=== PATIENT | female | born 1970 | race Caucasian/White ===

== ENCOUNTER 2020-02-16 05:26 | Inpatient (IN) ==
--- NOTE | 2019-11-05 09:26 | Anesthesiology Consultation ---
Date of Service November 05, 2019 Assessment & Plan Chart Review Chart Review: Pending: Refer to Additional Notes / Consult section and Patient NOT seen in Pre Admission Testing Consults Requested Would like to see an old EKG and a Primary office wellness visit note to better understand her multiple medical problems and IF we need medical clearance. History Surgery Operation Date: 11/18/19 13:05 Proposed Procedures p L5-S1 Decompression and Fusion, Spinal Cord Monitoring - Aashish Belcher, Height/Weight Height: 5 ft 5 in Weight: 80.739 kg Allergies Allergy/AdvReac Type Severity Reaction Status Date / Time bupropion [From Wellbutrin] Allergy Severe Seizure Verified 11/03/19 08:23 Iodinated Contrast Media Allergy Severe Anaphylaxis Verified 11/03/19 09:11 tramadol Allergy Severe SEIZURE Verified 11/03/19 08:23 milk AdvReac Mild upset Verified 11/03/19 08:31 stomach Medications Home Medications Medication Instructions Recorded Confirmed Last Taken albuterol sulfate 90 mcg/actuation 2 puffs INH QID PRN gm 08/24/19 11/03/19 Unknown aerosol inhaler celecoxib 200 mg capsule 200 mg PO QAM 08/24/19 11/03/19 Unknown cyclobenzaprine 10 mg tablet 10 mg PO BID tab 08/24/19 11/03/19 Unknown famotidine 20 mg tablet 20 mg PO BID 08/24/19 11/03/19 Unknown lamotrigine 200 mg tablet 200 mg PO BID 08/24/19 11/03/19 Unknown omeprazole 40 mg capsule,delayed 40 mg PO BID cap 08/24/19 11/03/19 Unknown release ondansetron HCl 4 mg tablet 4 mg PO Q8H PRN tab 08/24/19 11/03/19 Unknown pregabalin 50 mg capsule 50 mg PO BID cap 08/24/19 11/03/19 Unknown sumatriptan succinate 100 mg tablet 100 mg PO .COMPLEX PRN 30 Days #9 08/24/19 11/03/19 Unknown tab galcanezumab-gnlm 120 mg/mL 120 mg SQ MONTHLY 30 Days #1 ml 08/25/19 11/03/19 Unknown subcutaneous pen injector cariprazine 3 mg capsule 1.5 mg PO QAM 10/26/19 11/03/19 Unknown fluticasone furoate-vilanterol 1 inh INHALATION QAM 11/03/19 11/03/19 Unknown [Breo Ellipta] tiotropium bromide [Spiriva with 1 cap INHALATION QAM 11/03/19 11/03/19 Unknown HandiHaler] Past Medical History Medical History Anxiety and depression Bipolar disease, chronic Borderline personality disorder FOLLOWS THERAPY WEEKLY COPD (chronic obstructive pulmonary disease) Emphysema lung Fibromyalgia GERD (gastroesophageal reflux disease) History of IBS History of traumatic brain injury FEBRUARY 2000 (NO SURGICAL INTERVENTION) Lumbar degenerative disc disease Macular degeneration "BEGINING STAGES" Migraine without aura, not intractable, without status migrainosus Neuropathy Osteoarthritis involving multiple joints on both sides of body Pituitary abnormality HYPERPITUITARISM Post traumatic stress disorder Renal adenoma Restless leg syndrome Schizophrenia Seizure disorder EPILEPSY (LAST EVENT JULY 2019) Sleep apnea NO DEVICE "DID NOT WORK FOR ME" Transient ischemic attack (TIA) ? TIA'S (BRAIN MRI SHOWS LEFT SIDE OF BRAIN SMALLER THAN RIGHT) BEING MONITORED [facility] Past Family History Family History Mother Cerebral aneurysm Breast cancer Father QI (obstructive sleep apnea) Heart failure COPD (chronic obstructive pulmonary disease) Asthma Family history of diabetes mellitus Past Surgical History Surgical History H/O tubal ligation History of colonoscopy History of endometrial ablation History of esophagogastroduodenoscopy (EGD) History of hysterectomy History of removal of ovarian cyst [place] teeth removed Social History Smoking Status: Current every day smoker tobacco type: cigarettes Do You Dip or Chew Tobacco: No Smoking End Date: 10 CIG DAILY Hx Alcohol Use: No Hx Substance Use: No substance use type: does not use
--- NOTE | 2020-02-09 15:44 | Anesthesiology Consultation ---
Date of Service February 09, 2020 Assessment & Plan (1) Encounter for pre-operative examination: Chart Review Chart Review: Acceptable Risk for Surgery (evaluation by anesthesia/EKG/CBC DOS and Covid testing ) and Patient NOT seen in Pre Admission Testing Preop EKG showing sinus tachycardia with possible anterior infarct present since at least December 08, 2019. Had normal stress test one year ago. Will repeat EKG DOS. Pt's functional status can be evaluated DOS by anesthesiologist and decision to proceed with surgery will be at anesthesiologist discretion. CBC also showed leukocytosis - will repeat AM of surgery Per nursing assessment 02/09/2020, pt has had no recent travel. No known contact with PUIs or Covid positive people. No current Covid related symptoms or history of Covid testing. Will need testing prior to surgery. Seen by neuro 01/19/2020 = high-frequency migraine, probably chronic migraine, and seizure disorder, possibly psychogenic nonepileptic seizures (previous EEGs have been normal active ). Patient will restart Topamax. Topamax will be useful for patient's migraines as well as seizure disorder. May also have mood stabilizing effect in light of her history of bipolar disorder. Patient deemed acceptable risk for surgery by Dr. Chadwick on 11/05/2019 but surgery was rescheduled. History Surgery Operation Date: 11/16/19 13:05 Proposed Procedures p L5-S1 Decompression and Fusion, Spinal Cord Monitoring - Aashish Belcher DO Operation Date: 02/16/20 11:35 Proposed Procedures p L5-S1 Decompression Fusion, Spinal Cord Monitoring - Aashish Belcher DO Height/Weight Height: 5 ft 5 in Weight: 80.739 kg Allergies Allergy/AdvReac Type Severity Reaction Status Date / Time bupropion [From Wellbutrin] Allergy Severe Seizure Verified 02/09/20 09:55 Iodinated Contrast Media Allergy Severe Anaphylaxis Verified 02/09/20 09:55 tramadol Allergy Severe SEIZURE Verified 02/09/20 09:55 milk AdvReac Mild upset Verified 02/09/20 09:55 stomach Medications Home Medications Medication Instructions Recorded Confirmed Last Taken albuterol sulfate 90 mcg/actuation 2 puffs INH QID PRN gm 08/24/19 02/09/20 Unknown aerosol inhaler celecoxib 200 mg capsule 200 mg PO QAM 08/24/19 02/09/20 Unknown cyclobenzaprine 10 mg tablet 10 mg PO BID tab 08/24/19 02/09/20 Unknown famotidine 20 mg tablet 20 mg PO BID 08/24/19 02/09/20 Unknown omeprazole 40 mg capsule,delayed 40 mg PO BID cap 08/24/19 02/09/20 Unknown release ondansetron HCl 4 mg tablet 4 mg PO Q8H PRN tab 08/24/19 02/09/20 Unknown pregabalin 50 mg capsule 50 mg PO BID cap 08/24/19 02/09/20 Unknown sumatriptan succinate 100 mg tablet 100 mg PO .COMPLEX PRN 30 Days #9 08/24/19 02/09/20 Unknown tab fluticasone furoate-vilanterol 1 inh INHALATION QAM 11/03/19 02/09/20 Unknown [Breo Ellipta] tiotropium bromide [Spiriva with 1 cap INHALATION QAM 11/03/19 02/09/20 Unknown HandiHaler] galcanezumab-gnlm 120 mg/mL 120 mg SQ MONTHLY #1 ml 11/25/19 02/09/20 Unknown subcutaneous pen injector cyproheptadine 4 mg tablet 4 mg PO BID #60 tab 01/27/20 02/09/20 Unknown Past Medical History Medical History Anxiety and depression Bipolar disease, chronic Borderline personality disorder FOLLOWS THERAPY WEEKLY COPD (chronic obstructive pulmonary disease) Fibromyalgia GERD (gastroesophageal reflux disease) History of IBS History of traumatic brain injury FEBRUARY 2000 (NO SURGICAL INTERVENTION) Lumbar degenerative disc disease Macular degeneration "BEGINING STAGES" Migraine without aura, not intractable, without status migrainosus Neuropathy Osteoarthritis involving multiple joints on both sides of body Pituitary abnormality HYPERPITUITARISM Post traumatic stress disorder Renal adenoma Restless leg syndrome Schizophrenia Seizure disorder EPILEPSY (LAST EVENT JULY 2019) Sleep apnea NO DEVICE "DID NOT WORK FOR ME" Transient ischemic attack (TIA) ? TIA'S (BRAIN MRI SHOWS LEFT SIDE OF BRAIN SMALLER THAN RIGHT) BEING MONITORED [facility] Past Family History Family History Mother Cerebral aneurysm Breast cancer Father QI (obstructive sleep apnea) Heart failure COPD (chronic obstructive pulmonary disease) Asthma Family history of diabetes mellitus Past Surgical History Surgical History H/O tubal ligation History of colonoscopy History of endometrial ablation History of esophagogastroduodenoscopy (EGD) History of hysterectomy History of removal of ovarian cyst [place] teeth removed Social History Smoking Status: Current every day smoker tobacco type: cigarettes Do You Dip or Chew Tobacco: No Smoking End Date: 10 CIG DAILY Hx Alcohol Use: No Hx Substance Use: No substance use type: does not use Testing Laboratory Results 01/07/20= WBC: 14.70 H/H: 13.1/39.3 PLATELETS: 242 SODIUM: 138 POTASSIUM: 3.5 CHLORIDE: 104 CO2: 22 BUN: 12 CREATININE: 0.6 GLUCOSE: 96 Electrocardiogram Date: 01/07/20 Findings: + ST @ (111) Possible anterior infarct (cited on or before December 08, 2019). Chest X-Ray Date: 12/22/19 Findings: + NAD Echocardiogram Date: 05/28/18 EF: 73% RWMA: + none Mild AR. Mild TR. Stress Test Date: 01/11/19 Type: DSE Resting EF: 73% Resting RWMA: + none Negative dobutamine stress echo and EKG for ischemia at 89% MPHR. Stress EKG response shows no evidence of ischemia. Mild TR.
[~2020-02-16 05:26] MED LIST: ACETAMINOPHEN 500 MG TAB PO SCH; CEFAZOLIN 2000MG 2,000 MG/15 ML SYR IV SCH; CeleBREX 200 MG CAP PO SCH; GABAPENTIN 900 MG DOSE PO SCH; LR 15ML/HR IV SCH
[2020-02-16] MEDS ORDERED: GABAPENTIN 900 MG DOSE PO SCH (06:00)
[2020-02-16] MEDS ORDERED: ACETAMINOPHEN 500 MG TAB PO SCH (06:00)
[2020-02-16] MEDS ORDERED: CEFAZOLIN 2000MG 2,000 MG/15 ML SYR IV SCH (06:00)
[2020-02-16] MEDS ORDERED: LR 15ML/HR IV SCH (06:00)
[2020-02-16] MEDS ORDERED: CeleBREX 200 MG CAP PO SCH (06:00)
[2020-02-16 06:14] LABS: Basophils # (auto) 0.03 K/uL (0-0.2); Basophils % (auto) 0.3 %; Eosinophils # (auto) 0.44 K/uL (0-0.5); Eosinophils % (auto) 4.9 %; Hemoglobin 13.2 g/dL (12.0-16.0); Immature Granulocytes # (auto) 0.03 K/uL (0.00-0.02); Immature Granulocytes % (auto) 0.3 %; Lymphocytes # (auto) 3.78 K/uL (1.2-3.4); Lymphocytes % (auto) 41.9 %; Mean Corpuscular Hemoglobin 28.5 pg (25-34); Mean Corpuscular Volume 88.6 fL (80-100); Mean Platelet Volume 10.4 fL (7.4-10.4); Monocytes # (auto) 0.55 K/uL (0.11-0.59); Monocytes % (auto) 6.1 %; Neutrophils # (auto) 4.19 K/uL (1.4-6.5); Neutrophils % (auto) 46.5 %; Platelet Count 242 K/uL (130-400); RDW Coefficient of Variation 14.2 % (11.5-14.5); RDW Standard Deviation 45.7 fL (36.4-46.3); Red Blood Count 4.63 M/uL (4.2-5.4); White Blood Count 9.02 K/uL (4.8-10.8)
[2020-02-16 06:17] LABS: Mean Corpuscular Hgb Conc 32.2 g/dL (32-36)
[2020-02-16] MEDS ORDERED: BUPIVACAINE/EPINEPHRINE 0.25% 1:200,000 30 ML VIAL ONE (06:55)
[2020-02-16] MEDS ORDERED: BACITRACIN INJ 50,000 UNIT VIAL ONE (06:55)
[2020-02-16] MEDS ORDERED: MIDAZOLAM HCL 1 MG/ML 2ML VIAL ONE (06:56)
[2020-02-16] MEDS ORDERED: fentaNYL citrate 100 MCG/2 ML VIAL ONE (06:56)
[2020-02-16] MEDS ORDERED: ATROPINE SULFATE 0.1 MG/ML 10ML SYR IV PRN (07:03)
[2020-02-16] MEDS ORDERED: ePHEDrine sulfate 50 MG/ML AMP IV PRN (07:03)
[2020-02-16] MEDS ORDERED: ONDANSETRON INJ 2 MG/ML 2 ML VIAL IV PRN ×2 (07:03→10:28)
--- NOTE | 2020-02-16 07:30 | History & Physical Bridge Note ---
Date of Service February 16, 2020 History & Physical Bridge Note I have examined the patient, reviewed the History & Physical and in the interval since the performance of the History & Physical I have noted the following changes of clinical significance: no changes noted
--- NOTE | 2020-02-16 07:31 | History & Physical Report ---
Date of Service February 16, 2020 Assessment & Plan (1) Neurogenic claudication due to lumbar spinal stenosis: L5-S1 decompression fusion Present on Admission?: Yes History of Present Illness Chief Complaint: Back and bilateral leg pain Primary Care Provider: Richi Berkowitz, DO This is a 49-year-old female presents with back and leg pain after failing extensive course of nonoperative care is here for surgical intervention. Allergies Allergy/AdvReac Type Severity Reaction Status Date / Time bupropion [From Wellbutrin] Allergy Severe Seizure Verified 02/16/20 06:11 Iodinated Contrast Media Allergy Severe Anaphylaxis Verified 02/16/20 06:11 tramadol Allergy Severe SEIZURE Verified 02/16/20 06:11 milk AdvReac Mild upset Verified 02/16/20 06:11 stomach Home Medications Home Medications Medication Instructions Recorded Confirmed Type albuterol sulfate 90 mcg/actuation 2 puffs INH QID PRN gm 08/24/19 02/16/20 History aerosol inhaler celecoxib 200 mg capsule 200 mg PO QAM 08/24/19 02/16/20 History cyclobenzaprine 10 mg tablet 10 mg PO BID tab 08/24/19 02/16/20 History famotidine 20 mg tablet 20 mg PO BID 08/24/19 02/16/20 History omeprazole 40 mg capsule,delayed 40 mg PO BID cap 08/24/19 02/16/20 History release ondansetron HCl 4 mg tablet 4 mg PO Q8H PRN tab 08/24/19 02/16/20 History pregabalin 50 mg capsule 50 mg PO BID cap 08/24/19 02/16/20 History sumatriptan succinate 100 mg tablet 100 mg PO .COMPLEX PRN 30 Days #9 08/24/19 02/16/20 Rx tab fluticasone furoate-vilanterol 1 inh INHALATION QAM 11/03/19 02/16/20 History [Breo Ellipta] tiotropium bromide [Spiriva with 1 cap INHALATION QAM 11/03/19 02/16/20 History HandiHaler] galcanezumab-gnlm 120 mg/mL 120 mg SQ MONTHLY #1 ml 11/25/19 02/16/20 Rx subcutaneous pen injector cyproheptadine 4 mg tablet 4 mg PO BID #60 tab 01/27/20 02/16/20 Rx Past Med/Surg History Medical History Anxiety and depression Bipolar disease, chronic Borderline personality disorder FOLLOWS THERAPY WEEKLY COPD (chronic obstructive pulmonary disease) Fibromyalgia GERD (gastroesophageal reflux disease) History of IBS History of traumatic brain injury FEBRUARY 2000 (NO SURGICAL INTERVENTION) Lumbar degenerative disc disease Macular degeneration "BEGINING STAGES" Migraine without aura, not intractable, without status migrainosus Neuropathy Osteoarthritis involving multiple joints on both sides of body Pituitary abnormality HYPERPITUITARISM Post traumatic stress disorder Renal adenoma Restless leg syndrome Schizophrenia Seizure disorder EPILEPSY (LAST EVENT JULY 2019) Sleep apnea NO DEVICE "DID NOT WORK FOR ME" Transient ischemic attack (TIA) ? TIA'S (BRAIN MRI SHOWS LEFT SIDE OF BRAIN SMALLER THAN RIGHT) BEING MONITORED [facility] Surgical History H/O tubal ligation History of colonoscopy History of endometrial ablation History of esophagogastroduodenoscopy (EGD) History of hysterectomy History of removal of ovarian cyst [place] teeth removed Family History Mother Cerebral aneurysm Breast cancer Father QI (obstructive sleep apnea) Heart failure COPD (chronic obstructive pulmonary disease) Asthma Family history of diabetes mellitus Social History Preferred Language: Swedish Communication Ability: Effective [employer] Required: No Beliefs That Will Affect Care: None Current Living Situation: Spouse Other Information That Helps Us Care for You: No Feels Safe at Home: Yes Safety Concerns: Feels Safe At This Time Smoking Status: Current every day smoker Tobacco Type: cigarettes ; Do You Dip or Chew Tobacco: No ; Smoking End Date: 10 CIG DAILY ; Second Hand Exposure: No ; Tobacco Cessation Education Requested by Patient: No Hx Alcohol Use: No Hx Substance Use: No Physical Exam Physical Exam: Patient is alert and oriented neurologically intact Heart regular rate and rhythm Lungs clear to auscultation Results & Data Vital Signs (Past 12 Hours) Vital Signs Temp Pulse Resp BP Pulse Ox 02/16/20 06:17 37 C 71 18 121/78 93
[2020-02-16] MEDS ORDERED: HYDROmorphone INJ 2 MG/ML SYR/VIAL ONE (08:19)
[2020-02-16] MEDS ORDERED: ePHEDrine sulfate 50 MG/ML SYR ONE (08:21)
[2020-02-16] MEDS ORDERED: ROCURONIUM BROMIDE 10 MG/ML 5 ML VIAL ONE (08:21)
[2020-02-16] MEDS ORDERED: LARYING-O-JET KIT (LTA) ONE (08:21)
[2020-02-16] MEDS ORDERED: PHENYLEPHRINE 100MCG/ML 5ML SYR ONE (08:21)
[2020-02-16] MEDS ORDERED: LIDOCAINE HCL 2% 2 ML VIAL/AMP(20MG/ML) INFIL ONE (08:21)
[2020-02-16] MEDS ORDERED: ONDANSETRON INJ 2 MG/ML 2 ML VIAL ONE (08:21)
[2020-02-16] MEDS ORDERED: DEXAMETHASONE SOD INJ 4 MG/ML VIAL ONE (08:21)
[2020-02-16] MEDS ORDERED: PROPOFOL IV EMULSION 10 MG/ML 20 ML VIAL IV ONE (08:21)
[2020-02-16] MEDS ORDERED: GLYCOPYRROLATE 0.2 MG/ML VIAL ONE (08:21)
[2020-02-16] MEDS ORDERED: NEOSTIGMINE METHYLSULFATE 5 MG/5 ML SYR ONE (08:21)
[2020-02-16] MEDS ORDERED: FLOSEAL HEMOSTATIC MATRIX 10ML TOP ONE (08:30)
--- NOTE | 2020-02-16 09:09 | Operative Report ---
Post Operative Report Pre & Post Diagnosis Operation Date: 11/16/19 13:05 <No data on this case meets the specified criteria> Operation Date: 02/16/20 07:45 Pre-Op Diagnosis: Lumbar spinal stenosis with neurogenic claudication Postoperative diagnosis Lumbar spinal stenosis with neurogenic claudication I identified the patient and participated in the time-out.: Yes Procedure Operation Date: 11/16/19 13:05 <No data on this case meets the specified criteria> Operation Date: 02/16/20 07:45 Actual Procedures p L5-S1 Decompression Fusion, Interbody Cage Insertion L5-S1, Spinal Cord Monitoring(Not Applicable) - Aashish Belcher DO Surgeon Aashish Belcher DO Hotel General Manager Myla Gonzales Estimated Blood Loss 30 Findings Consistent with Post-Op Diagnosis Specimens None Indications This is a 49-year-old female presents with above-mentioned diagnosis after failing extensive course of nonoperative care is here for surgical invention. Description of Procedure Patient was met with identified informed consent obtained. Patient was then taken to the operative suite underwent intubation placed in a prone position on the Scout table on top of the Benjamin frame. All bony prominences well-padded eyes inspected to ensure no external pressure placed upon the. This point the lumbar spine was prepped and draped in normal sterile fashion. Sharp dissection with the assistance of Bovie cautery was performed down to and exposing the lamina and transverse processes of L5 and the sacral ala bilaterally. From a caudal cephalad fashion complete laminectomy of L5 was performed including bilateral medial facetectomies and foraminotomies addressing all neural compression. Pedicle screws were then placed in L5 and S1 levels bilaterally with assistance of fluoroscopy and the appropriately sized razia placed. By way of a transforaminal approach on the left complete discectomy was performed endplates curetted to subcortical bleeding bone and a 9 x 22 mm peek cage filled with osteo-amp bone graft tapped in position. The rods were then compressed locked into final position bilaterally. The transverse processes of L5 and sacral ala burred to subcortical bleeding bone. Infuse collagen sponge master graft local autograft placed in the posterior lateral gutters. 15 round JAMEY drain inserted. The incision was then closed with 1 Vicryl in the fascia 2-0 Vicryl subcutaneously and 4 Monocryl for final skin closure. Steri-Strip sterile dressings placed. Patient waken taken to PACU stable condition. Please note spinal cord monitoring was utilized that the procedure no changes noted. Lastly Myla Gonzales was present at the entire procedure involved the patient positioning complex portions of the surgery and final skin closure. I attest to the content of the Intraoperative Record and any orders documented therein. Any exceptions are noted below.
[2020-02-16] MEDS: fentaNYL citrate 100 MCG/2 ML VIAL IV PRN ×3 (09:32→09:54)
--- NOTE | 2020-02-16 09:49 | Fluoroscopy Report ---
FL lumbar spine 2-3V HISTORY: 49 years-old Female L5-S1 DECOMPRESSION AND FUSION COMPARISON: None TECHNIQUE: 2 spot fluoroscopic images of the lumbar spine were obtained utilizing 17.7 seconds fluoro scopy time FINDINGS: Laminectomy with posterior interbody razia and screw fusion and discectomy changes are noted at what is labeled the L5-S1 level. There is apparent transitional lumbosacral anatomy with lumbarization of S1 . Satisfactory alignment. No acute fracture. The hardware appears intact. IMPRESSION: Fluoroscopic assistance as above. Please see operative report for further details. ACT 112: Negative or not required by law. The above report was generated using voice recognition software. It may contain grammatical, syntax o r spelling errors. Electronically signed by: Jose Alejandro De Jesus M.D. 02/16/2020 9:48 AM
--- NOTE | 2020-02-16 10:16 | Anesthesiology Progress Note ---
Date of Service February 16, 2020 Anesthesia Post Procedure Vital Signs Vital Signs: Temp Pulse Pulse Resp BP Pulse Ox 02/16/20 10:00 97.5 F L 73 14 105/64 96 02/16/20 09:50 87 16 113/65 95 02/16/20 09:40 87 16 136/92 98 02/16/20 09:30 85 14 120/66 96 02/16/20 09:22 97.3 F L 75 14 126/78 96 02/16/20 06:17 98.6 F 71 18 121/78 93 Pain Intensity Lower Back: Pain Intensity: 5 Transfer of Care Handoff Completed per policy Notes Mental Status: alert / awake / arousable and participated in evaluation Patient Amnestic to Procedure: Yes Nausea / Vomiting: adequately controlled Pain: adequately controlled Airway Patency, RR, SpO2: stable & adequate BP & HR: stable & adequate Hydration State: stable & adequate Anesthetic Complications: no major complications apparent and Pt Satisfied with anesthetic care
[2020-02-16] MEDS ORDERED: LORazepam 0.5 MG TAB PO PRN (10:28)
[2020-02-16] MEDS ORDERED: HYDROmorphone INJ 1 MG/ML SYRINGE IV PRN (10:28)
[2020-02-16] MEDS ORDERED: SOD PHOSPHATE/SOD BIPHOSPHATE ENEMA 132 ML BTL PR PRN (10:28)
[2020-02-16] MEDS ORDERED: SUMAtriptan succinate 100 MG TAB PO PRN (10:28)
[2020-02-16] MEDS ORDERED: LORazepam 0.5 MG/1 ML VIAL IV PRN (10:28)
[2020-02-16] MEDS ORDERED: bisacodyL 10 MG SUPP PR PRN (10:28)
[2020-02-16] MEDS ORDERED: MAGNESIUM HYDROXIDE SUSP 30 ML UDC PO PRN (10:28)
[2020-02-16] MEDS ORDERED: METOCLOPRAMIDE HCL INJ 5 MG/ML 2 ML VIAL IV PRN (10:28)
[2020-02-16] MEDS ORDERED: DO NOT ADMINISTER PNEUMOCOCCAL VACCINE PRN (10:28)
[2020-02-16] MEDS ORDERED: NALOXONE HCL 0.4 MG/1 ML VIAL/CARP IV PRN (10:28)
[2020-02-16] MEDS ORDERED: PROMETHAZINE HCL 12.5 MG in SODIUM CHLORIDE 0.9% 50 ML IV PRN (10:28)
[2020-02-16] MEDS ORDERED: ACETAMINOPHEN 500 MG TAB PO PRN (10:28)
[2020-02-16] MEDS ORDERED: ACETAMINOPHEN 1,000 MG/100 ML VIAL IV PRN (10:28)
[2020-02-16] MEDS ORDERED: ALUMINUM/MAGNESIUM SUSP 30 ML UDC PO PRN (10:28)
[2020-02-16] MEDS ORDERED: ALBUTEROL HFA 8 GM INHALER INH PRN (10:28)
[2020-02-16] MEDS ORDERED: DO NOT ADMINISTER FLU VACCINE PRN (10:28)
[2020-02-16] MEDS ORDERED: FAMOTIDINE 20 MG TAB PO PRN (10:28)
[2020-02-16] MEDS ORDERED: ONDANSETRON 4 MG OD TAB PO PRN (10:28)
[2020-02-16] MEDS ORDERED: HYDROmorphone INJ 0.5 MG/0.5 ML SYR IV PRN (10:28)
[2020-02-16] MEDS: LACTATED RINGER'S 1,000 ML IV SCH ×2 (11:22→20:13)
[2020-02-16] MEDS: KETOROLAC TROMETHAMINE 15 MG/ML VIAL IV SCH ×3 (11:45→23:43)
[2020-02-16] MEDS: OXYCODONE HCL IR 5 MG TAB (IMMEDIATE RELEASE) PO PRN ×3 (12:52→23:50)
[2020-02-16] MEDS: CEFAZOLIN 2000MG 2,000 MG/15 ML SYR IV SCH ×2 (15:56→23:43)
[2020-02-16] MEDS: ESCITALOPRAM OXALATE 10 MG TAB PO SCH (16:19)
[2020-02-16] MEDS: DOCUSATE SODIUM/SENNA 50/8.6MG TAB PO SCH (20:16)
[2020-02-16] MEDS: FAMOTIDINE 20 MG TAB PO SCH (20:16)
[2020-02-16] MEDS: ziprasidone HCL 80 MG CAP PO SCH (20:16)
[2020-02-16] MEDS: PANTOprazole 40 MG TAB PO SCH (20:16)
[2020-02-16] MEDS: CYPROHEPTADINE HCL 4 MG TAB PO SCH (20:17)
[2020-02-16] MEDS: PREGABALIN 50 MG CAP PO SCH (20:20)
[2020-02-17] MEDS: POLYETHYLENE (MIRALAX) 17 GM PACK PO SCH ×4 (05:24→23:41)
[2020-02-17] MEDS: KETOROLAC TROMETHAMINE 15 MG/ML VIAL IV SCH (05:25)
--- NOTE | 2020-02-17 05:45 | Electrocardiogram Report ---
Test Reason : Blood Pressure : / mmHG Vent. Rate : 071 BPM Atrial Rate : 071 BPM P-R Int : 164 ms QRS Dur : 088 ms QT Int : 424 ms P-R-T Axes : 037 050 024 degrees QTc Int : 460 ms Normal sinus rhythm Normal ECG No previous ECGs available Confirmed by Richar Stanton ([id number]) on 02/17/2020 5:45:27 AM Referred By: Aashish Belcher Confirmed By:Richar Stanton
[2020-02-17 06:05] LABS: Basophils # (auto) 0.01 K/uL (0-0.2); Basophils % (auto) 0.1 %; Hematocrit (blood only) 36.5 % (37-47); Hemoglobin 11.9 g/dL (12.0-16.0); Immature Granulocytes # (auto) 0.06 K/uL (0.00-0.02); Immature Granulocytes % (auto) 0.3 %; Lymphocytes # (auto) 1.62 K/uL (1.2-3.4); Lymphocytes % (auto) 9.1 %; Mean Corpuscular Hemoglobin 29.1 pg (25-34); Mean Corpuscular Hgb Conc 32.6 g/dL (32-36); Mean Corpuscular Volume 89.2 fL (80-100); Mean Platelet Volume 10.4 fL (7.4-10.4); Monocytes % (auto) 5.6 %; Neutrophils # (auto) 15.18 K/uL (1.4-6.5); Neutrophils % (auto) 84.9 %; Platelet Count 222 K/uL (130-400); RDW Coefficient of Variation 14.2 % (11.5-14.5); RDW Standard Deviation 46.5 fL (36.4-46.3); Red Blood Count 4.09 M/uL (4.2-5.4); White Blood Count 17.87 K/uL (4.8-10.8)
[2020-02-17 06:32] LABS: BUN Creatinine Ratio 10.1 (10-20); Calcium 8.3 mg/dl (8.5-10.1); Creatinine Clr Calc Pharmacy 107.6 ml/min; Est GFR (African American) 120.1; Est GFR (Non-African American) 103.7; Potassium 4.2 mmol/L (3.5-5.1)
[2020-02-17] MEDS: PANTOprazole 40 MG TAB PO SCH ×2 (08:15→20:47)
[2020-02-17] MEDS: UMECLIDINIUM BROMIDE 62.5MCG/BLISTER 7 PUFFS/INHALER INH SCH (08:15)
[2020-02-17] MEDS: CYPROHEPTADINE HCL 4 MG TAB PO SCH ×2 (08:15→20:47)
[2020-02-17] MEDS: FLUTICASONE/VILANTEROL 100/25MCG 14 PUFFS/INHALER INH SCH (08:15)
[2020-02-17] MEDS: PREGABALIN 50 MG CAP PO SCH ×2 (08:15→20:46)
[2020-02-17] MEDS: FAMOTIDINE 20 MG TAB PO SCH ×2 (08:16→20:46)
--- NOTE | 2020-02-17 08:20 | Anesthesiology Progress Note ---
Date of Service February 17, 2020 Anesthesia Post Procedure Vital Signs Vital Signs: Temp Pulse Pulse Resp BP BP Pulse Ox 02/17/20 07:15 36.8 C 62 16 113/77 93 02/16/20 23:35 36.7 C 78 14 120/81 92 02/16/20 15:33 36.6 C 83 17 120/81 93 02/16/20 13:20 36.6 C 84 16 134/86 92 02/16/20 12:20 36.6 C 88 16 110/77 94 02/16/20 11:20 36.5 C 90 18 111/72 97 02/16/20 10:56 63 16 95/61 L 97 02/16/20 10:20 36.6 C 73 16 114/75 99 02/16/20 10:00 36.4 C L 73 14 105/64 96 02/16/20 09:50 87 16 113/65 95 02/16/20 09:40 87 16 136/92 98 02/16/20 09:30 85 14 120/66 96 02/16/20 09:22 36.3 C L 75 14 126/78 96 Pain Intensity Lower Back: Pain Intensity: 5 Notes Mental Status: alert / awake / arousable and participated in evaluation Nausea / Vomiting: adequately controlled Pain: adequately controlled Airway Patency, RR, SpO2: stable & adequate BP & HR: stable & adequate Hydration State: stable & adequate Anesthetic Complications: Pt Satisfied with anesthetic care
[2020-02-17] MEDS: ESCITALOPRAM OXALATE 10 MG TAB PO SCH (08:56)
--- NOTE | 2020-02-17 09:42 | Orthopedic Progress Note ---
Date of Service February 17, 2020 Assessment & Plan (1) Neurogenic claudication due to lumbar spinal stenosis: This time we will continue physical therapy monitor her JAMEY output anticipate discharge home tomorrow. Present on Admission?: Yes Admission and Anticipated Discharge Date Admission Date: February 16, 2020 Subjective Back pain controlled leg symptoms improved. Physical Exam Physical Exam: Patient is sitting at the bedside. She has good strength testing. Appears comfortable. Results & Data ([facility]) Vital Signs (Past 12 Hours) Vital Signs Temp Pulse Resp BP Pulse Ox 02/17/20 07:15 36.8 C 62 16 113/77 93 02/16/20 23:35 36.7 C 78 14 120/81 92
[2020-02-17] MEDS: OXYCODONE HCL IR 5 MG TAB (IMMEDIATE RELEASE) PO PRN ×3 (10:57→21:57)
[2020-02-17] MEDS: ziprasidone HCL 80 MG CAP PO SCH (20:46)
[2020-02-17] MEDS: DOCUSATE SODIUM/SENNA 50/8.6MG TAB PO SCH (20:48)
[2020-02-18] MEDS: POLYETHYLENE (MIRALAX) 17 GM PACK PO SCH (06:29)
[2020-02-18] MEDS: OXYCODONE HCL IR 5 MG TAB (IMMEDIATE RELEASE) PO PRN (06:29)
[2020-02-18] MEDS: UMECLIDINIUM BROMIDE 62.5MCG/BLISTER 7 PUFFS/INHALER INH SCH (08:57)
[2020-02-18] MEDS: FLUTICASONE/VILANTEROL 100/25MCG 14 PUFFS/INHALER INH SCH (08:57)
[2020-02-18] MEDS: ESCITALOPRAM OXALATE 10 MG TAB PO SCH (08:58)
[2020-02-18] MEDS: CYPROHEPTADINE HCL 4 MG TAB PO SCH (08:59)
[2020-02-18] MEDS: PANTOprazole 40 MG TAB PO SCH (09:00)
[2020-02-18] MEDS ORDERED: DEXAMETHASONE SOD PHOSPHATE 8 MG in SYRINGE 0 ML IV SCH (09:00)
[2020-02-18] MEDS: FAMOTIDINE 20 MG TAB PO SCH (09:00)
[2020-02-18] MEDS: PREGABALIN 50 MG CAP PO SCH (09:01)
--- NOTE | 2020-02-18 12:22 | Discharge Summary ---
Date of Service February 18, 2020 Admission HPI Per Admitting Provider This is a 49-year-old female presents with back and leg pain after failing extensive course of nonoperative care is here for surgical intervention. Principal Diagnosis Lumbar spinal stenosis with neurogenic claudication Discharge Data Allergies Allergy/AdvReac Type Severity Reaction Status Date / Time bupropion [From Wellbutrin] Allergy Severe Seizure Verified 02/16/20 06:11 Iodinated Contrast Media Allergy Severe Anaphylaxis Verified 02/16/20 06:11 tramadol Allergy Severe SEIZURE Verified 02/16/20 06:11 milk AdvReac Mild upset Verified 02/16/20 06:11 stomach Consultations 02/16/20 10:28 Consult Case Management - Discharge Planning Routine Procedures Performed Operation Date: 11/16/19 13:05 <No data on this case meets the specified criteria> Operation Date: 02/16/20 07:45 Actual Procedures p L5-S1 Decompression Fusion, Interbody Cage Insertion L5-S1, Spinal Cord Monitoring(Not Applicable) - Aashish Belcher DO Ordered Studies 02/16/20 07:45 FL fluoroscopy <1hr Routine FL lumbar spine 2-3V Routine Hospital Course (1) Neurogenic claudication due to lumbar spinal stenosis: Patient underwent lumbar decompression fusion tolerated this well was taken to the orthopedic for postoperative. Postop day 1 she was up and ambulating pain controlled. Postop day 2 JAMEY drain decreased appropriately. Pain well controlled. Strength intact. Subsequently discharged home. Discharge orders instructions from the chart for further review. Total Time Total Time Spent Total Time Spent (In Minutes): 20 minutes Discharge Plan Discharge Items Patient Disposition: Home - Self-Care Reason For Visit: LUMBAR SPINAL STENOSIS WO NEUROGENIC CLAUDICATION Discharge Diagnosis: Lumbar spinal stenosis with radiculopathy Activity: As commented below Non-emergency contact: Primary Care Provider Call non-emergency contact if: you have any medication questions Follow-up/Referrals: Richi Berkowitz DO [Primary Care Provider] - Diet: Regular Addtl Attending Provider Instructions: ACTIVITY RECOMMENDATIONS: SELF CARE INSTRUCTIONS AFTER THORACIC/LUMBAR FUSIONS 1. You may walk to your tolerance. It is good exercise for your legs and back. Expect some back and intermittent leg aches and pains. 2. You may perform "counter-top" level activities (make a sandwich, clarence with a project, etc.). 3. No bending or lifting of more than 10 pounds or back twisting of any nature (roll like a log when turning in bed). 4. You may ride in a car for 20-30 minutes at a time. No driving until after your first visit with your doctor. 5. Frequent changes of position and restricting sitting to 30 minutes at a time will help limit the amount of back spasms and stiffness you may experience. 6. You may discontinue the use of ambulatory aids (cane, crutches, etc.) once your strength and confidence allow. 7. You may keller machine operator the shower and let water strike your incision when you arrive home at least once daily. Do not take a tub bath, sit in a hot tub or go into a swimming pool until after your first recheck in the office. SPECIAL CARE INSTRUCTIONS: VERY IMPORTANT TO READ AND REVIEW A. Your surgical incision has been closed with a cosmetic suture under the skin that will dissolve in about 6 weeks. In 14 days, you can use a pair of clean scissors and cut the suture that is left outside of the skin at the ends of your incision. 1. The small skin tapes can be removed 7 days after surgery if they have not fallen off by that point. 2. You may keep the wound open to air as much as possible to promote healing after post-op day number 5 unless told otherwise by your doctor. 3. If you think the wound looks like it is becoming infected (redness or worsening drainage) and/or you are experiencing fever, chill or worsening back pain and muscle spasms, contact the office so that we may evaluate you as soon as possible. B. Complications are uncommon, but please contact us if you have any signs or symptoms of: 1. wound infection (fever higher than 102.5 degrees F, redness, separation of wound, drainage, or increasing pain from the incision) 2. blood clots in legs (pain, swelling, redness and warmth in legs) 3. urinary tract infection (fever higher than 102.5 degrees F, burning upon urination or increased frequency of urination) 4. nerve problems (inability to walk on your toes or heels, numbness, loss of bowel or bladder control) 5. any other symptoms that concern you C. Please call the office at if you have any concerns or questions about your operation or recovery. D. No smoking! Smoking drastically decreases the chance of a solid fusion. E. Do not take any anti-inflammatory medications (Indocin, Advil, Motrin, Aspirin, Naprosyn, etc.) as these may inhibit the chance of a solid fusion. Tylenol is okay to take for pain. MANAGING PAIN AFTER SPINAL SURGERY 1. Narcotic medication is intended for short-term use and will be provided for surgical pain. Surgical pain usually lasts for a period of 4-6 weeks. Narcotic medication includes Percocet, Vicodin, Darvocet, Tylenol #3 or Lortab. 2. Longer-term pain is more appropriately treated with non-narcotic medication such as Tylenol ES. 3. Muscle spasm is not appropriately treated with narcotics. Muscle relaxers such as Soma, Flexeril or Skelaxin can be used along with Tylenol ES. 4. Remember that we all live with some "aches and pains". This is not unusual or uncommon after an injury or as we get older. a. Back pain is expected and may include muscle spasms for 4 to 6 weeks after surgery. The pain should gradually improve. If the pain worsens for no apparent reason, please contact the office. b. Intermittent leg pain may also be experienced and should not be concerned about unless it worsens for no apparent reason. If so, please contact the office. 5. We will provide appropriate medication within the normal guidelines of their prescribed use. We will also be very cautious and aware of potential abuse and extended duration of patients' medication needs. a. Pain medications are for your comfort and to assist with sleep and rest so that the tissue can heal. They are not provided in order to return to normal activity and should not be used through the day. To do so or worsening pain at night can result from ongoing tissue damage and development of tolerance to the prescribed medicine. 6. Please allow 2-3 days to process refills. Prescriptions will not be mailed but must be picked up at the office. FOLLOW UP VISIT: Keep your scheduled follow-up appointment. Any questions, please call the office at . Pending Studies at Discharge: No Stand-Alone Forms: [employer], Smoking Cessation Medications and DC Order Prescriptions: New oxycodone 5 mg tablet 5 mg PO Q6H PRN (Reason: pain, severe) Qty: 30 RF: 0 Continued Emgality Pen 120 mg/mL pen injector 120 mg SQ MONTHLY Qty: 1 RF: 1 Hold Instructions: start 09/26/19 cyproheptadine 4 mg tablet 4 mg PO BID Qty: 60 RF: 0 pregabalin [Lyrica] 50 mg capsule 50 mg PO BID RF: 0 famotidine 20 mg tablet 20 mg PO BID RF: 0 cyclobenzaprine 10 mg tablet 10 mg PO BID RF: 0 omeprazole 40 mg capsule,delayed release(DR/EC) 40 mg PO BID RF: 0 albuterol sulfate 90 mcg/actuation HFA aerosol inhaler 2 puffs INH QID PRN (Reason: SOB) RF: 0 ondansetron HCl 4 mg tablet 4 mg PO Q8H PRN (Reason: Nausea) RF: 0 sumatriptan succinate 100 mg tablet 100 mg PO .COMPLEX PRN (Reason: migraine headache) 30 Days Qty: 9 RF: 3 Spiriva with HandiHaler 18 mcg Capsule, W/Inhalation Device 1 cap INHALATION QAM RF: 0 Breo Ellipta 100-25 mcg/dose Blister With Device 1 inh INHALATION QAM RF: 0 Discontinued celecoxib [Celebrex] 200 mg capsule 200 mg PO QAM RF: 0 Discharge Orders: Discharge Order (Routine); Ordered 02/18/20 Ordered By: Aashish Belcher Admission Data Admit Date/Time: 02/16/20 09:30 Attending Provider: Aashish Belcher Admit Provider: Aashish Belcher Primary Care Provider: Richi Berkowitz V. Other Interventions: Discharge Summary Assessment (RN) Last Done: 02/18/20 12:18
== END 2020-02-18 12:52 | disposition home or self-care (01) | DRG 455 ==
LOC: ASU 05:26 → 3E 09:30
DX: M48.07 Spinal stenosis, lumbosacral region